=== PATIENT | male | born 1990 | race Caucasian/White ===

== ENCOUNTER 2016-12-24 13:11 | Emergency (ER) | payer OTHER ==
[~2016-12-24] VITALS: Ht 185.4 cm; Wt 66.6 kg
[~2016-12-24 13:11] MED LIST: NAPR500T PO; OXYC1TAB24 PO; tylenol PO
[2016-12-24 13:15] VITALS: BP 120/80; PULSE 92; RESP 18; O2SAT 98
[2016-12-24] MEDS ORDERED: Ketorolac 30 mg/mL 2 mL Inj IM ONE (13:50)
--- NOTE | 2016-12-24 13:59 | ED.REPORT ---
HPI-Dental/Mouth Prob Date of Service Dec 24, 2016 ED Provider: Herrera Seay PA-C Killian's otherwise healthy 26-year-old male presents with chief complaint of tooth pain. The pain began approximately 2 days ago when he bit down on something. He locates the pain in his lower left jaw and rates it 10/10. Reports that he experienced fever, chills, sweats, malaise 2 days ago but it has passed. Denies discharge, bad taste, abdominal pain, vomiting, diarrhea, difficulty breathing/swallowing. He has been treating the pain with Tylenol to minimal effect Nursing Notes Stated Complaint: BROKEN TOOTH, POSSIBLY INFECTED Chief Complaint: Dental Nursing Notes Reviewed: Yes Allergies: Coded Allergies: Penicillins (Verified Allergy, Severe, hives, throat swelling, 04/21/16) Scheduled PRN ([tylenol]) 500 MG PO prn PRN PRN For Pain Naproxen (Naprosyn) 500 Mg Tablet 500 MG PO BID PRN PRN For Pain oxyCODONE (oxyCODONE) 5 Mg Tablet 5 MG PO Q4H PRN PRN For Pain oxyCODONE-Acetaminophen 5-325 mg (oxyCODONE-Acetaminophen 5-325 mg) 1 Each Tablet 1 TAB PO Q6H PRN PRN For Pain General Time Seen by MD: 13:32 Chief Complaint Tooth pain Past Medical History Smoking History Former Smoker Social History Alcohol Use: In recovery Drug Use: Denies drug use Other Social History: Lives alone Occupation recently laid off due to L and I injury Ambulatory Status Independent Review of Systems Negative unless stated otherwise in history of present illness Physical Exam General: Well appearing, well developed, well nourished, no acute distress. Head: Atraumatic, normocephalic. Eyes: No scleral icterus or injection. No discharge. Vision grossly intact. ENT: Voice clear, hearing grossly intact. Mouth: Normal dentition with the exception of a large obvious cavity in tooth 31. Tender to percussion. No redness, swelling, discharge. No induration in floor of mouth. Tonsils 2+ and symmetrical without exudate, uvula rises midline. Respiratory: No respiratory distress, no increased work of breathing. Speaks in complete sentences. Skin: Warm and dry. Neurological: Grossly nonfocal. Psychological: alert and oriented. Speech appropriate, linear and logical. Behavior appropriate. Initial Vital Signs Vital Signs (First) Date Time Temp Pulse Resp B/P Pulse Ox O2 Delivery O2 Flow Rate FiO2 12/24/16 13:15 36.3 92 18 120/80 98 Room Air Initial VS: Reviewed, Vital signs normal Re-Eval/Medical Decision Med Decision/Clinical Course Otherwise healthy 26-year-old male presents with 2 day history of tooth pain in his right lower jaw began when he bit into something. Physical exam reveals a obvious cavity. No redness, swelling, discharge. I believe it is likely that he fractured this tooth, there is no indication of infection or other causes of pain such as abscess, Tramaine's angina, peritonsillar abscess. After dental block which was declined, given instructions for [id number] analgesia and a small amount of oxycodone to supplement with precautions. Advised primary/ dental follow-up and gave return precautions. I discussed this case with Dr. Zuluaga Discharge & Departure Primary Impression: Toothache Disposition: Home Discharge Condition All VS Reviewed: Yes Condition: Stable Patient Instructions: Acute dental trauma (ED) Additional Instructions: Evaluation for tooth pain in the emergency department. You have an obviously decayed tooth in your right lower jaw. It is likely that you fractured this while chewing. At this time there is no indication of infection. The pain is best treated with 600 mg of ibuprofen (Advil, Motrin) every 6 hours , or 1000 mg of acetaminophen (Tylenol) every 6 hours. These drugs can be taken at the same time for more severe pain. I will provide a prescription for small amount of oxycodone to be taken up to every 4 hours for pain not controlled by the other drugs. Do not drive or drink alcohol within 4 hours of taking this medication. I will provide a referral to [facility], which hopefully will help you be seen. Seek out dental care as soon as possible. This will likely require calling many dentists and being placed on waiting lists. Return to the emergency Department for new or worsening symptoms including increasing pain, redness, swelling, discharge, fever or feeling ill. Referrals: [facility] EDSupervising Provider for APC: Deidre Zuluaga MD copies to: [facility] Herrera Seay PA-C Dec 24, 2016 13:59
[2016-12-24] MEDS ORDERED: OXYC5TAB72 PO (14:00)
[2016-12-24 14:57] VITALS: BP 118/76; PULSE 88; RESP 18; O2SAT 98
== END 2016-12-24 14:00 | disposition home or self-care (01) ==
LOC: SED 13:11
DX: K08.89 Other specified disorders of teeth and supporting structures (principal); Z87.891 Personal history of nicotine dependence; Z88.0 Allergy status to penicillin